=== PATIENT | male | born 1965 | race Caucasian/White ===

== ENCOUNTER 2019-06-15 12:58 | Emergency (ER) | payer OTHER ==
[2019-06-15] MEDS ORDERED: KETOROLAC 30 MG/ML INJ ONE (13:45)
[2019-06-15] MEDS ORDERED: dexAMETHasone 10 MG/ML VIAL ONE (13:45)
[2019-06-15] MEDS ORDERED: DIAZEPAM 10 MG/2 ML INJ SYRINGE ONE (13:45)
--- NOTE | 2019-06-15 14:00 | RAD REPORT ---
EXAM DESCRIPTION: CT - C Spine Wo Con - 06/15/2019 1:52 pm CLINICAL HISTORY: neck pain Neck pain, neck injury COMPARISON: Head C Spine Mpr Wo Con dated 06/09/2017; Head C Spine Mpr Wo Con dated 05/26/2017 FINDINGS: The cervical vertebral body heights are maintained. Mild lower cervical spondylosis with s mall endplate osteophytes. No evidence of acute cervical spine fracture or subluxation. Prevertebral soft tissues are normal in thickness. IMPRESSION: Negative for acute cervical spine abnormality. Mild lower cervical spondylosis. All CT scans are performed using dose optimization technique as appropriate and may include automated exposure control or mA/KV adjustment according to patient size.
[2019-06-15] MEDS ORDERED: ONDANSETRON 4 MG/2 ML VIAL ONE (14:47)
[2019-06-15] MEDS ORDERED: MORPHINE 4 MG/ML SYR ONE (14:47)
--- NOTE | 2019-06-15 15:33 | ER ---
Nurse's Notes [facility] Name: Jasmeet Mendoza Jr Age: 53 yrs Sex: Male : 1965 Arrival Date: 06/15/2019 Time: 13:01 Bed 18 Private MD: Diagnosis: Muscle spasm;Radiculopathy, cervical region Presentation: 06/15 13:19 Presenting complaint: Patient states: neck pain x 2 years. Patient reports he felt his ss neck crack today and has much more pain. Denies injury. Transition of care: patient was not received from another setting of care. Acute neurological deficit: none identified. Onset of symptoms was 2016. Risk Assessment: Do you want to hurt yourself or someone else? Patient reports no desire to harm self or others. Initial Sepsis Screen: Does the patient meet any 2 criteria? No. Patient's initial sepsis screen is negative. Does the patient have a suspected source of infection? No. Patient's initial sepsis screen is negative. Care prior to arrival: None. 13:19 Method Of Arrival: Ambulatory ss 13:19 Acuity: ALAN 4 ss Historical: - Allergies: 13:21 Codeine; ss 13:21 hydromorphone HCl; ss - Home Meds: 13:21 None [Active]; ss - PMHx: 13:21 chronic neck pain; ss 13:21 Myocardial infarction; ss - PSHx: 13:21 Appendectomy; ss - Immunization history:: Adult Immunizations unknown. - Social history:: Smoking status: Patient uses tobacco products, chewing tobacco. - Ebola Screening: : Patient denies exposure to infectious person Patient denies travel to an Ebola-affected area in the 21 days before illness onset. Screenin:20 Abuse screen: Denies threats or abuse. Denies injuries from another. Nutritional jl7 screening: No deficits noted. Tuberculosis screening: No symptoms or risk factors identified. Fall Risk IV access (20 points). Total James Fall Scale indicates No Risk (0-24 pts). Assessment: 13:30 General: Appears in no apparent distress. uncomfortable, Behavior is calm, cooperative, jl7 appropriate for age. Pain: Complains of pain in left posterior neck Pain radiates to right arm, left arm, right leg and left leg Pain currently is 10 out of 10 on a pain scale. Quality of pain is described as shooting, Pain began years ago. Is intermittent. Neuro: Level of Consciousness is awake, alert, obeys commands, Oriented to person, place, time, situation. Cardiovascular: Patient's skin is warm and dry. Respiratory: Airway is patent Respiratory effort is even, unlabored, Respiratory pattern is regular, symmetrical. Derm: Skin is pink, warm \T\ dry. Musculoskeletal: Range of motion: limited in neck. 14:45 Reassessment: Patient appears in no apparent distress at this time. Patient and/or jl7 family updated on plan of care and expected duration. Pain level reassessed. Patient is alert, oriented x 3, equal unlabored respirations, skin warm/dry/pink. Pain rated 7/10 at this time. Patient states feeling better. Patient states symptoms have improved. Vital Signs: 13:21 BP 124 / 80; Pulse 93; Resp 16; Temp 98.6(TE); Pulse Ox 99% on R/A; Weight 81.65 kg; ss Height 5 ft. 10 in. (177.80 cm); Pain 9/10; 14:20 BP 120 / 76; Pulse 72; Resp 16; Pulse Ox 100% ; Pain 10/10; jl7 14:45 BP 114 / 81; Pulse 64; Resp 16; Pulse Ox 100% ; Pain 7/10; jl7 13:21 Body Mass Index 25.83 (81.65 kg, 177.80 cm) ED Course: 13:01 Patient arrived in ED. rg4 13:19 Xander Paniagua PA is PHCP. jmm 13:19 Frantz Matthews MD is Attending Physician. [facility] 13:20 Triage completed. ss 13:21 Arm band placed on right wrist. ss 13:27 Erin Caldwell, BAEL is Primary Nurse. jl7 14:00 CT C Spine In Process Unspecified. EDMS 14:15 Inserted saline lock: 22 gauge in left forearm, using aseptic technique. jl7 14:20 Patient has correct armband on for positive identification. Placed in gown. Bed in low jl7 position. Call light in reach. Side rails up X 1. Pulse ox on. NIBP on. 15:31 Rg Gutierrez MD is Referral Physician. [facility] 15:47 No provider procedures requiring assistance completed. IV discontinued, intact, jl7 bleeding controlled, No redness/swelling at site. Pressure dressing applied. Administered Medications: 14:20 Drug: Decadron - Dexamethasone 10 mg Route: IVP; Site: left forearm; jl7 14:42 Follow up: Response: No adverse reaction; Pain is decreased jl7 14:25 Drug: Ketorolac 30 mg Route: IVP; Site: left forearm; jl7 14:43 Follow up: Response: No adverse reaction; Pain is decreased jl7 14:26 Drug: Valium 2 mg Route: IVP; Site: left forearm; jl7 14:43 Follow up: Response: No adverse reaction; Pain is decreased jl7 14:50 Drug: Zofran 4 mg Route: IVP; Site: left forearm; jl7 15:44 Follow up: Response: No adverse reaction jl7 14:52 Drug: morphine 4 mg Route: IVP; Site: left forearm; jl7 15:10 Follow up: Response: No adverse reaction; Pain is decreased jl7 Outcome: 15:32 Discharge ordered by . sherlyn 15:47 Discharged to home ambulatory, with family. jl7 15:47 Condition: stable 15:47 Discharge instructions given to patient, Instructed on discharge instructions, follow up and referral plans. medication usage, Demonstrated understanding of instructions, follow-up care, medications, Prescriptions given X 1. 15:49 Patient left the ED. jl7 Signatures: Dispatcher [employer] EDMS Xander Paniagua PA PA jmm Smirch, Shelby, RN RN Mesha Massey4 Erin Caldwell RN RN jl7 Corrections: (The following items were deleted from the chart) 15:23 13:30 Pain: Complains of pain in left posterior neck Pain radiates to right arm, left jl7 arm, right leg and left leg Pain currently is 8 out of 10 on a pain scale. Quality of pain is described as shooting, Pain began years ago. Is intermittent, jl7
--- NOTE | 2019-06-15 15:34 | EDPHYS ---
Physician Documentation [facility] Name: Jasmeet Mendoza Jr Age: 53 yrs Sex: Male : 1965 Arrival Date: 06/15/2019 Time: 13:01 Bed 18 Private MD: ED Physician Frantz Matthews HPI: 06/15 13:24 This 53 yrs old Male presents to ER via Ambulatory with complaints of Neck jmm Pain, >24Hrs Old. 13:24 The patient or guardian complains of pain. Onset: The symptoms/episode began/occurred jmm gradually, this morning. Associated signs and symptoms: Pertinent positives: headache, Paresthesias Pertinent negatives: headache. The pain radiates to the left arm. The patient has experienced similar episodes in the past. This is a 53 year old male with a history of chronic neck pain, ami that presents to the ED with complaints of left sided neck pain which radiates down his left arm. Patient has had similar episodes in the past but this episode is more intense. Patient denies chest pain or shortness of breath. . Historical: - Allergies: 13:21 Codeine; ss 13:21 hydromorphone HCl; ss - Home Meds: 13:21 None [Active]; ss - PMHx: 13:21 chronic neck pain; ss 13:21 Myocardial infarction; ss - PSHx: 13:21 Appendectomy; ss - Immunization history:: Adult Immunizations unknown. - Social history:: Smoking status: Patient uses tobacco products, chewing tobacco. - Ebola Screening: : Patient denies exposure to infectious person Patient denies travel to an Ebola-affected area in the 21 days before illness onset. ROS: 13:24 Constitutional: Negative for fever, chills, and weight loss, Eyes: Negative for injury, jmm pain, redness, and discharge, ENT: Negative for injury, pain, and discharge. 13:24 Cardiovascular: Negative for chest pain, palpitations, and edema, Respiratory: Negative for shortness of breath, cough, wheezing, and pleuritic chest pain. 13:24 Neck: Positive for pain with movement. 13:24 Back: Positive for pain with movement. 13:24 All other systems are negative. Exam: 13:24 Constitutional: This is a well developed, well nourished patient who is awake, alert, jmm and in no acute distress. Head/Face: atraumatic. Eyes: EOMI, no conjunctival erythema appreciated ENT: Moist Mucus Membranes 13:24 Chest/axilla: Normal chest wall appearance and motion. Cardiovascular: Regular rate and rhythm. No edema appreciated Respiratory: Normal respirations, no respiratory distress appreciated Abdomen/GI: Non distended, soft Back: Normal ROM 13:24 Neck: left sided neck pain on palpation, painful rotations noted. 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 13:24 Skin: Appearance: Color: normal in color. 13:24 Neuro: Orientation: is normal, Mentation: is normal, Memory: is normal. 13:24 Psych: Behavior/mood is pleasant, cooperative. Vital Signs: 13:21 BP 124 / 80; Pulse 93; Resp 16; Temp 98.6(TE); Pulse Ox 99% on R/A; Weight 81.65 kg; ss Height 5 ft. 10 in. (177.80 cm); Pain 9/10; 14:20 BP 120 / 76; Pulse 72; Resp 16; Pulse Ox 100% ; Pain 10/10; jl7 14:45 BP 114 / 81; Pulse 64; Resp 16; Pulse Ox 100% ; Pain 7/10; jl7 13:21 Body Mass Index 25.83 (81.65 kg, 177.80 cm) ss MDM: 13:24 Patient medically screened. [facility] 15:30 Data reviewed: vital signs, nurses notes. Counseling: I had a detailed discussion with sheryln the patient and/or guardian regarding: the historical points, exam findings, and any diagnostic results supporting the discharge/admit diagnosis, radiology results, the need for outpatient follow up, to return to the emergency department if symptoms worsen or persist or if there are any questions or concerns that arise at home. ED course: Pain decreased in the ED. Patient advised to follow up with spine surgery for reevaluation. patient otherwise given strict return precautions. patient understood and agrees with the plan of care. . 06/15 13:36 Order name: CT C Spine; Complete Time: 14:12 [facility] 06/15 13:36 Order name: Saline Lock; Complete Time: 14:20 [facility] Administered Medications: 14:20 Drug: Decadron - Dexamethasone 10 mg Route: IVP; Site: left forearm; jl7 14:42 Follow up: Response: No adverse reaction; Pain is decreased jl7 14:25 Drug: Ketorolac 30 mg Route: IVP; Site: left forearm; jl7 14:43 Follow up: Response: No adverse reaction; Pain is decreased jl7 14:26 Drug: Valium 2 mg Route: IVP; Site: left forearm; jl7 14:43 Follow up: Response: No adverse reaction; Pain is decreased jl7 14:50 Drug: Zofran 4 mg Route: IVP; Site: left forearm; jl7 15:44 Follow up: Response: No adverse reaction jl7 14:52 Drug: morphine 4 mg Route: IVP; Site: left forearm; jl7 15:10 Follow up: Response: No adverse reaction; Pain is decreased jl7 Disposition: 06/16 06:43 Co-signature as Attending Physician, Frantz Matthews MD I agree with the assessment and porter plan of care. Disposition: 06/15/19 15:32 Discharged to Home. Impression: Muscle spasm, Radiculopathy, cervical region. - Condition is Stable. - Discharge Instructions: Cervical Radiculopathy, Spasticity. - Prescriptions for Zanaflex 4 mg Oral Tablet - take 1 tablet by ORAL route every 8 hours As needed; 20 tablet. - Medication Reconciliation Form, Thank You Letter, Antibiotic Education, Prescription Opioid Use form. - Follow up: Rg Gutierrez MD; When: 2 - 3 days; Reason: Recheck today's complaints, Continuance of care, Re-evaluation by your physician. Signatures: Dispatcher [employer] Frantz Mercado MD MD cha Mickail, Joel, PA PA jmm Smirch, Shelby, RN RN ss Leal, Jahala, RN RN jl7 Corrections: (The following items were deleted from the chart) 06/15 15:49 15:32 06/15/2019 15:32 Discharged to Home. Impression: Muscle spasm; Radiculopathy, jl7 cervical region. Condition is Stable. Forms are Medication Reconciliation Form, Thank You Letter, Antibiotic Education, Prescription Opioid Use. Follow up: Rg Gutierrez; When: 2 - 3 days; Reason: Recheck today's complaints, Continuance of care, Re-evaluation by your physician. sherlyn
[2019-06-15 15:56] VITALS: TEMP 98.6
[2019-06-15 15:58] VITALS: O2SAT 100
[2019-06-15 15:59] VITALS: BP 114/81
== END 2019-06-15 15:49 | disposition home or self-care (01) ==
LOC: ER 12:58
DX: M54.12 Radiculopathy, cervical region (principal); M62.838 Other muscle spasm; F17.220 Nicotine dependence, chewing tobacco, uncomplicated; Z88.5 Allergy status to narcotic agent
CPT/HCPCS: 72125; 96375; 96374; 99284; J3360; J1100; J2405

== ENCOUNTER 2020-03-08 07:32 | Emergency (ER) | payer OTHER ==
--- OUTSIDE RECORDS SUMMARY | 2020-03-08 07:34 | XMS REPORT | Continuity of Care Document ---
:1965 Author Organization [facility] t Address [address] [place] [address] Care Team Providers Name Role Phone Garo ROMAN Attending Clinician Unavailable Kerry MERINO, S Attending Clinician Sam MERINO Attending Clinician Problems This patient has no known problems. Allergies, Adverse Reactions, Alerts This patient has no known allergies or adverse reactions. Medications This patient has no known medications. Procedures This patient has no known procedures. Encounters Start End Encounter Admission Attending Care Care Encounter Source Date/Time Date/Time Type Type Clinicians Facility Department ID 2020-02-23 2020-02-23 Transition Britany Wyman [id number] 00:00:00 00:00:00 of Care Shayla Iqbal [id number] [place] [id number] 2020-02-23 2020-02-23 Transition Britany Wyman [id number] 00:00:00 00:00:00 of Care Shayla Iqbal [id number] [place] [id number] 2020-02-22 2020-02-22 Emergency Snow Payne [facility] [id number] 06:08:10 10:35:00 Beck Vargas [id number] [place] [id number] [place] [id number] Results This patient has no known results.
--- OUTSIDE RECORDS SUMMARY | 2020-03-08 07:34 | XMS REPORT | Summary of Care ---
:1965 Author Organization [facility] Address [address] [place] [address] Care Team Providers Name Role Phone Pcp, Does Not Have A Primary Care Provider Reason for Referral (STAT) Status Reason Specialty Diagnoses / Referred By Referred To Procedures Contact Contact New Request IM-INTERNAL Diagnoses Headache disorder Hypertension, unspecified type Beck Fajardo, MEDICINE Procedures Discharge Follow-Up: Specialty Service IM-INTERNAL MEDICINE; 3-[address] [place] [address] MRI/CAT Scan (STAT) Status Reason Specialty Diagnoses / Referred By Referred To Procedures Contact Contact New Request Diagnostic Diagnoses Headache disorder Beck Fajardo, Radiology Procedures CT ANGIOGRAM NECK [address] [place] [address] MRI/CAT Scan (STAT) Status Reason Specialty Diagnoses / Referred By Referred To Procedures Contact Contact New Request Diagnostic Diagnoses Headache disorder Beck Fajardo, Radiology Procedures CT ANGIOGRAM HEAD [address] [place] [address] MRI/CAT Scan (STAT) Status Reason Specialty Diagnoses / Referred By Referred To Procedures Contact Contact New Request Diagnostic Diagnoses Headache disorder Snow Payne Radiology Procedures CT HEAD WO CONTRAST SMD [address] [place], [place] [id number] Reason for Visit Reason Comments Headache Auth/Cert Status Reason Specialty Diagnoses / Referred By Referred To Procedures Contact Contact Emergency Medicine Diagnoses SEVERE HEADACHE [facility] Emergency Dept [address] [place] [address] Fax: Encounter Details Date Type Department Care Team Description 02/22/2020 Emergency ADC-Emergency Snow Payne MD [address] [facility] [id number] [place], [place] [id number] Headache disorder (Primary Dx); Department Beck Fajardo MD [address] [facility] [address] [place], [place] [id number] Hypertension, unspecified type [address] [place], [place] [id number] Allergies Active Allergy Reactions Severity Noted Date Comments Codeine Hives 10/29/2015 documented as of this encounter (statuses as of 02/22/2020) Medications Medication Sig Dispensed Refills Start Date End Date Status diclofenac (VOLTAREN) 75 Take 1 tablet 60 tablet 1 01/30/2016 Active mg EC tablet by mouth 2 (two) times daily with meals. traMADOL (ULTRAM) 50 mg Take 1 tablet by mouth every 6 (six) hours as needed for Pain (scale 4-6). Rodolfo Cruz PA-C / Jeronimo Nichols MD 20 tablet 0 12/10/2016 Active tablet ENRIQUE# [id number] DPS# [id number] [place] Lic.# [id number] NPI# [id number] cyclobenzaprine 5 mg Take 1 tablet 30 tablet 0 12/10/2016 Active tablet by mouth 3 (three) times daily. Butalbital-Acetaminophen- Take 1 capsule 20 capsule 0 02/22/20 20 Active Caff (FIORICET) 50-300-40 by mouth every mg per 6 (six) hours capsuleIndications: as needed for Headache disorder, Pain (scale Hypertension, unspecified 4-6). type ondansetron 4 mg Take 1 tablet 20 tablet 0 02/22/2020 Active disintegrating by mouth every tabletIndications: 4 (four) hours Headache disorder, as needed for Hypertension, unspecified Nausea and type Vomiting (N/V). hydroCHLOROthiazide 25 mg Take 1 tablet 30 tablet 0 02/22/2020 Active tabletIndications: by mouth every Headache disorder, morning. Hypertension, unspecified type documented as of this encounter (statuses as of 02/22/2020) Active Problems Problem Noted Date Low back pain 01/30/2016 documented as of this encounter (statuses as of 02/22/2020) Immunizations Name Administration Dates Next Due Td 09/01/2015 documented as of this encounter Social History Tobacco Use Types Packs/Day Years Used Date Never Smoker Alcohol Use Drinks/Week oz/Week Comments No 0 Standard drinks or equivalent 0.0 Sex Assigned at Date Recorded Not on file Job Start Date Occupation Industry Not on file Not on file Not on file Travel History Travel Start Travel End No recent travel history available. COVID-19 Exposure Response Date Recorded In the last month, have you been in contact with No / Unsure 02/22/2020 6:30 AM CDT someone who was confirmed or suspected to have Coronavirus / COVID-19? documented as of this encounter Last Filed Vital Signs Vital Sign Reading Time Taken Comments Blood Pressure 125/91 02/22/2020 10:19 AM CDT Pulse 63 02/22/2020 10:19 AM CDT Temperature 36.9 C (98.4 F) 02/22/2020 6:10 AM CDT Respiratory Rate 12 02/22/2020 10:19 AM CDT Oxygen Saturation 100% 02/22/2020 10:19 AM CDT Inhaled Oxygen Concentration - - Weight 81.6 kg (180 lb) 02/22/2020 6:10 AM CDT Height 177.8 cm (5' 10") 02/22/2020 6:10 AM CDT Body Mass Index 25.83 02/22/2020 6:10 AM CDT documented in this encounter Discharge Instructions InstructionsBeck Fajardo MD - 02/22/2020 RETURN FOR ANY QUESTIONS OR CONCERNS Today you were seen by Beck Fajardo Jr., MD You were seen today for Chief Complaint Patient presents with Headache Your ER diagnosis was ICD-10-CM ICD-9-CM 1. Headache disorder R51 784.0 2. Hypertension, unspecified type I10 401.9 NO LIFE-THREATENING FINDINGS ON TODAY'S EXAM. YOUR PRESCRIPTIONS : Check out [employer] for medication discounts Medication List START taking these medications Hlnysmymhg-Xcimrfujdpdpi-Mwey 50-300-40 mg per capsule Commonly known as: FIORICET Take 1 capsule by mouth every 6 (six) hours as needed for Pain (scale 4-6). hydroCHLOROthiazide 25 mg tablet Commonly known as: ESIDRIX Take 1 tablet by mouth every morning. ondansetron 4 mg disintegrating tablet Commonly known as: ZOFRAN-ODT Take 1 tablet by mouth every 4 (four) hours as needed for Nausea and Vomiting (N/V). ASK your doctor about these medications cyclobenzaprine 5 mg tablet Commonly known as: FLEXERIL Take 1 tablet by mouth 3 (three) times daily. diclofenac 75 mg EC tablet Commonly known as: VOLTAREN Take 1 tablet by mouth 2 (two) times daily with meals. traMADol 50 mg tablet Commonly known as: ULTRAM Take 1 tablet by mouth every 6 (six) hours as needed for Pain (scale 4-6). Rodolfo Cruz PA-C / Jeronimo Nichols MD ENRIQUE# [id number] DPS# [id number] Ri Lic.# [id number] NPI# [id number] Where to Get Your Medications You can get these medications from any pharmacy Bring a paper prescription for each of these medications Jrgetosdde-Mfapxnghewwph-Qvhn 50-300-40 mg per capsule hydroCHLOROthiazide 25 mg tablet ondansetron 4 mg disintegrating tablet ER precautions and follow up : 1. Return to ER if your symptoms should worsen or fail to improve within 72 hours. 2. The care provided in the emergency room was for acute problems only. 3. You should follow up with your primary care provider within 72 hours. 4. Fill and take all your medications as prescribed. 5. Make sure you are staying adequately hydrated. Busque attencion immediatamente si usted tiene los sitomas sigue, vuelve peor o si hay sitomas nuevas o para cualquiera preoccupacion incluyendo dolor del pecho, falta aire, se siente debile, mas fievre, mas dolor, nausea, vomitando, sangrando que no es normal, confusion, baja or pierdas conciencia. MAY FOLLOW-UP WITH A PROVIDER OF YOUR CHOICE, SUCH : 1. A PHYSICIAN OF YOUR CHOICE 2. [facility], . LOCATIONS IN [facility] 3. [facility], [address], [place]; [phone] OR, IF YOU WISH TO FOLLOW-UP WITHIN THE [facility], MAY TRY THESE OPTIONS (CLINIC APPOINTMENTS AVAILABLE ON [id number] BASIS): 1. SCHEDULE AN APPOINTMENT ONLINE AT [facility] 2. OR CALL THE [facility] ACCESS CENTER AT OR 3. OR CALL YOUR [facility] PHYSICIAN'S OFFICE DIRECTLY IF YOU ARE ALREADY AN ESTABLISHED [facility] PATIENT. [facility] RETURN TO WORK / SCHOOL EXCUSE Jasmeet Mendoza WAS SEEN IN THE ER AND DISCHARGED 02/22/2020 TODAY, 10:23 AM & May return to Work / School / Incarceration on X with activity as tolerated indicated below. ___The following limitations apply until pt is seen by Physician and cleared to return to normal activity. _X_ Off for two days and return to activity as tolerated at work or school ___ No Sports ___ No work ___ Do not return until fever free for 24 hours. ___ No school BECK FAJARDO Jr., MD [facility] EMERGENCY DEPRTMENT [address] [place] [address] [place] [address] ### The patient may have been given Narcotic pain medications during their stay in the ED that may show up on a Drug Screen. The hospital discharge paper work will identify these medications. AttachmentsThe following attachments cannot be sent through Care Everywhere. Headache, Unspecified (Polish)Hypertension, New (Begin Treatment) (Polish) documented in this encounter Plan of Treatment Health Maintenance Due Date Last Done Comments HEPATITIS C (HCV) SCREEN 1965 DTaP,Tdap,and Td Vaccines (1 - 1974 09/01/2015 Tdap) Depression Screening 1975 COLONOSCOPY 2013 Zoster Recombinant Vaccine 2013 (SHINGRIX) (1 of 2) INFLUENZA VACCINE (Season Ended) 2020 PNEUMOCOCCAL 0-64 YEARS COMBINED Aged Out No longer eligible based on SERIES patient's age to complete this topic documented as of this encounter Procedures Procedure Name Priority Date/Time Associated Comments Diagnosis CT ANGIOGRAM NECK STAT 02/22/2020 9:47 Headache disorder R esults for this AM CDT procedure are i n the results section. CT ANGIOGRAM HEAD STAT 02/22/2020 9:47 Headache disorder R esults for this AM CDT procedure are i n the results section. CT HEAD WO CONTRAST STAT 02/22/2020 7:09 Headache disorder Results for this AM CDT procedure are i n the results section. CBC WITH DIFFERENTIAL STAT 02/22/2020 6:50 Headache disord er Results for this AM CDT procedure are i n the results section. CBC WITH DIFFERENTIAL STAT 02/22/2020 6:50 Headache disord er Results for this AM CDT procedure are i n the results section. BASIC METABOLIC PANEL STAT 02/22/2020 6:50 Headache disord er Results for this (NA, K, CL, CO2, AM CDT procedure a re in GLUCOSE, BUN, the results CREATININE, CA) section. PROTHROMBIN TIME / STAT 02/22/2020 6:31 Headache disorder Results for this INR AM CDT procedure are i n the results section. NOTICE OF PRIVACY Routine 02/22/2020 6:02 PRACTICES AM CDT documented in this encounter Results CT ANGIOGRAM NECK (02/22/2020 9:47 AM CDT) Specimen Impressions Performed At PACS/VR/DOSE No intracranial proximal large vessel occlusion. No ev idence of vertebral artery dissection. No significant extracranial stenosis. Narrative Performed At EXAMINATION: CT ANGIOGRAM NECK, CT ANG IOGRAM HEAD PACS/VR/DOSE HISTORY: Dissection of vertebral artery TECHNIQUE: CT angiography of the brain was performed and reviewed in multiple planes. Two dimensional multiplanar reformatted images were ge nerated and submitted to PACS. CT angiography of the neck was performed using 1 mm thick axial slices and reviewed in multiple planes. Two dimensional multiplanar reformatted images were generated and conner bmitted to PACS. A total of 100 mL Omnipaque was inject ed intravenously. COMPARISON: None. FINDINGS: CTA of the [place] reveals no intracranial pr oximal large vessel occlusion or significant stenosis. Mild right cavernous carotid atherosclerosis. Left vertebra artery functionally ter minates as PICA. No CT-identifiable aneurysm is present. C onventional angiography is more sensitive for the detection of small ane urysms. CTA of the neck demonstrates that the or igins of the great vessels are widely patent. Conventional arch anato my. There is no evidence of significant extracranial stenosis. 0% stenosis of th e cervical internal carotid arteries by NASCET criteria. No aneurysm is seen. Dominant right vertebral artery. Mild degenerative changes of the cervica l spine. Left nasal deformity. Procedure Note [facility], Radiant Results Inft User - 2019 10:10 AM CDT EXAMINATION: CT ANGIOGRAM NECK, CT ANGIOGRAM HEAD HISTORY: Dissection of vertebral artery TECHNIQUE: CT angiography of the brain was performe d and reviewed in multiple planes. Two dimensional multiplanar reformatted images were generated and submitted to PACS. CT angiography of the neck was performed using 1 mm thick axial slices and reviewed in multiple planes. Two dimensional multiplanar reformatted images were generated and conner bmitted to PACS. A total of 100 mL Omnipaque was injecte d intravenously. COMPARISON: None. FINDINGS: CTA of the [place] reveals no i ntracranial proximal large vessel occlusion or significant stenosis. Mild right cavernous carotid atherosclerosis. Left vertebra artery fu nctionally terminates as PICA. No CT-identifiable aneurysm is present. Co nventional angiography is more sensitive for the detection of small ane urysms. CTA of the neck demonstrates that the or igins of the great vessels are widely patent. Conventional arch anatom y. There is no evidence of significant extracranial stenosis. 0% s tenosis of the cervical internal carotid arteries by NASCET criteria. No aneurysm is seen. Dominant right vertebral artery. Mild degenerative changes of the cervica l spine. Left nasal deformity. IMPRESSION No intracranial proximal large vessel oc clusion. No evidence of vertebral artery dissection. No significant extracranial stenosis. Performing Organization Address City/State/Zipcode Phone Number PACS/VR/DOSE CT ANGIOGRAM HEAD (02/22/2020 9:47 AM CDT) Specimen Impressions Performed At PACS/VR/DOSE No intracranial proximal large vessel occlusion. No ev idence of vertebral artery dissection. No significant extracranial stenosis. Narrative Performed At EXAMINATION: CT ANGIOGRAM NECK, CT ANG IOGRAM HEAD PACS/VR/DOSE HISTORY: Dissection of vertebral artery TECHNIQUE: CT angiography of the brain was performed and reviewed in multiple planes. Two dimensional multiplanar reformatted images were ge nerated and submitted to PACS. CT angiography of the neck was performed using 1 mm thick axial slices and reviewed in multiple planes. Two dimensional multiplanar reformatted images were generated and conner bmitted to PACS. A total of 100 mL Omnipaque was inject ed intravenously. COMPARISON: None. FINDINGS: CTA of the [place] reveals no intracranial pr oximal large vessel occlusion or significant stenosis. Mild right cavernous carotid atherosclerosis. Left vertebra artery functionally ter minates as PICA. No CT-identifiable aneurysm is present. C onventional angiography is more sensitive for the detection of small ane urysms. CTA of the neck demonstrates that the or igins of the great vessels are widely patent. Conventional arch anato my. There is no evidence of significant extracranial stenosis. 0% stenosis of th e cervical internal carotid arteries by NASCET criteria. No aneurysm is seen. Dominant right vertebral artery. Mild degenerative changes of the cervica l spine. Left nasal deformity. Procedure Note [facility], Radiant Results Inft User - 2019 10:10 AM CDT EXAMINATION: CT ANGIOGRAM NECK, CT ANGIOGRAM HEAD HISTORY: Dissection of vertebral artery TECHNIQUE: CT angiography of the brain was performe d and reviewed in multiple planes. Two dimensional multiplanar reformatted images were generated and submitted to PACS. CT angiography of the neck was performed using 1 mm thick axial slices and reviewed in multiple planes. Two dimensional multiplanar reformatted images were generated and conner bmitted to PACS. A total of 100 mL Omnipaque was injecte d intravenously. COMPARISON: None. FINDINGS: CTA of the [place] reveals no i ntracranial proximal large vessel occlusion or significant stenosis. Mild right cavernous carotid atherosclerosis. Left vertebra artery fu nctionally terminates as PICA. No CT-identifiable aneurysm is present. Co nventional angiography is more sensitive for the detection of small ane urysms. CTA of the neck demonstrates that the or igins of the great vessels are widely patent. Conventional arch anatom y. There is no evidence of significant extracranial stenosis. 0% s tenosis of the cervical internal carotid arteries by NASCET criteria. No aneurysm is seen. Dominant right vertebral artery. Mild degenerative changes of the cervica l spine. Left nasal deformity. IMPRESSION No intracranial proximal large vessel oc clusion. No evidence of vertebral artery dissection. No significant extracranial stenosis. Performing Organization Address City/State/Zipcode Phone Number PACS/VR/DOSE CT HEAD WO CONTRAST (02/22/2020 7:09 AM CDT) Specimen Impressions Performed At PACS/VR/DOSE Unremarkable CT examination of the brain . Preliminary Report Dictated by Resident: Lashay Mcmanus MD., have reviewe d this study and agree with the above report. Narrative Performed At CT HEAD WO CONTRAST PACS/VR/DOSE HISTORY: Headache, acute, normal neuro e xam COMPARISON: None TECHNIQUE: Contiguous axial imaging to the base of sku ll was obtained with 2.5 mm slices without intravenous contra st. 5 mm axial, coronal, and sagittal reformats were obtained. FINDINGS: The ventricles and cerebral sulci are normal in calibe r and configuration. No hydrocephalus, midline shift or patho logical extra-axial fluid collection is present. The basal cistern s are unremarkable. There is no acute intracranial hemorrhag e or significant mass effect. No parenchymal attenuation abnormality. The sosa-white ma tter differentiation is preserved. The mastoid air cells and paranasal air sinuses are clear. The calvarium and central skull base are unremarkable. Procedure Note [facility], Radiant Results Inft User - 2019 8:[address] HEAD WO CONTRAST HISTORY: Headache, acute, normal neuro e xam COMPARISON: None TECHNIQUE: Contiguous axial imaging to t he base of skull was obtained with 2.5 mm slices without intravenous contra st. 5 mm axial, coronal, and sagittal reformats were obtained. FINDINGS: The ventricles and cerebral sulci are no rmal in caliber and configuration. No hydrocephalus, midline shift or patho logical extra-axial fluid collection is present. The basal cistern s are unremarkable. There is no acute intracranial hemorrhag e or significant mass effect. No parenchymal attenuation abnormality. The sosa-white matter differentiation is preserved. The mastoid air cells and paranasal air sinuses are clear. The calvarium and central skull base are unremarkable. IMPRESSION Unremarkable CT examination of the brain . Preliminary Report Dictated by Resident: Lashay Mcmanus MD., have reviewed this study and agree with the above report. Performing Organization Address City/State/Zipcode Phone Number PACS/VR/DOSE CBC WITH DIFFERENTIAL (02/22/2020 6:50 AM CDT) [facility] WBC 7.86 4.20 - 10.70 [facility] 10*3/L HOSP[facility] LAB[facility] RBC 4.89 4.26 - 5.52 [facility] 10*6/L H[facility]ITAL [facility] HGB 14.7 12.2 - 16.4 g/dL [facility] LABORATORY HCT 43.6 38.4 - 49.3 % [facility] MCV 89.2 81.7 - 95.6 fL [facility] MCH 30.1 26.1 - 32.7 pg [facility] MCHC 33.7 31.2 - 35.0 g/dL [facility] RDW-SD 40.1 38.5 - 51.6 fL [facility] RDW-CV 12.3 12.1 - 15.4 % [facility] PLT 279 150 - 328 [facility] 10*3/L [facility] MPV 8.7 (L) 9.8 - 13.0 fL [facility] NRBC/100 WBC 0.0 0.0 - 10.0 /100 [facility] WBCs [facility] NRBC x10^3 <0.01 10*3/L [facility] GRAN MAT (NEUT) % 56.2 % [facility] IMM GRAN % 0.40 % [facility] LYMPH % 32.8 % [facility] MONO % 7.3 % [facility] EOS % 2.7 % [facility] BASO % 0.6 % [facility] GRAN MAT x10^3(ANC) 4.42 1.99 - 6.95 [facility] 10*3/uL HOSPITAL LABORATORY IMM GRAN x10^3 0.03 0.00 - 0.06 [facility] 10*3/uL HOSPITAL LAB[facility]ORY LYMPH x10^3 2.58 1.09 - 3.23 [facility] 10*3/uL HOSPITAL LAB[facility] MONO x10^3 0.57 0.36 - 1.02 [facility] 10*3/uL HOS[facility]ITAL LAB[facility] EOS x10^3 0.21 0.06 - 0.53 [facility] 10*3/uL [facility]ITAL [facility] BASO x10^3 0.05 0.01 - 0.09 [facility] 10*3/uL HOSPITAL LAB[facility]ORY Specimen Blood - ARM, RIGHT Performing Organization Address City/State/Zipcode Phone Number [facility] CLIA: [id number], [address] [place], [place] [address] BASIC METABOLIC PANEL (NA, K, CL, CO2, GLUCOSE, BUN, CREATININE, CA) (02/22/2020 6:50 AM CDT) [facility] NA 137 135 - 145 mmol/L [facility] K 3.9 3.5 - 5.0 mmol/L [facility] CL 103 98 - 108 mmol/L [facility] CO2 TOTAL 27 23 - 31 mmol/L [facility] AGAP 7 2 - 16 [facility] BUN 12 7 - 23 mg/dL [facility] GLUCOSE 105 70 - 110 mg/dL [facility] CREATININE 1.08 0.60 - 1.25 [facility] mg/dL [facility] CALCIUM 9.7 8.6 - 10.6 mg/dL [facility] eGFR Calculation 70.7 mL/min/1.73m2 [facility] (Non-) [facility] LAB[facility] Y eGFR Calculation 85.7 mL/min/1.73m2 [facility] () [facility] Specimen Blood - ARM, RIGHT Narrative Performed At [facility] Glomerular Filtration Rate (GFR) [facility] and Staging of Kidney Disease* + + +- + | GFR (mL/min/1.73 m2) | With Kidney Damage | Without Kidney Damage + + +- + | >90 | Stage one | Normal + + +- + | 60-89 | Stage two | Decreased GFR + + +- + | 30-59 | Stage three | Stage three + + +- + | 15-29 | Stage four | Stage four + + +- + | <15 (or dialysis) | Stage five | Stage five + + +- + *Each stage assumes the associated GFR level has been in effect for at least three months. Stages 1 to 5, with or without kidney disease, indicate chronic kidney disease. Notes: Determination of stages one and two (with eGFR >59mL/min/1.73 m2) requires estimation of kidney damage for at least three months as defined by structural or functional abnormalities of the kidney, manifested by either: Pathological abnormalities or Markers of kidney damage (including abnormalities in the composition of the blood or urine or abnormalities in imaging tests). Performing Organization Address City/State/Zipcode Phone Number [facility] CLIA: [id number], [address] [place] [id number] [address] PROTHROMBIN TIME / INR (02/22/2020 6:31 AM CDT) PROTIME PATIENT 12.3 12.0 - 14.7 [facility] LABORATORY INR 1.0Comment: Normal [facility] INR <1.1; [facility] Therapeutic range LABORATORY 2.0 to 3.0 or 2.5 to 3.5, depending upon the indications. Specimen Blood - ARM, RIGHT Performing Organization Address City/State/Zipcode Phone Number [facility] CLIA: [id number], [address] [place], [place] [address] documented in this encounter Visit Diagnoses Diagnosis Headache disorder - Primary Headache Hypertension, unspecified type documented in this encounter Administered Medications Medication Order MAR Action Action Date Dose Rate Site acetaminophen (TYLENOL) tablet Given 02/22/2020 8:21 AM CDT 975 mg 975 mg 975 mg, Oral, ONCE, 1 dose, Noris 02/22/20 at 0845, PRITI cloNIDine (CATAPRES) tablet 0.2 mg Given 02/22/2020 8:22 AM CDT 0.1 mg 0.2 mg, Oral, ONCE, 1 dose, Noris 02/22/20 at 0845, STAT diphenhydrAMINE (BENADRYL) injection 25 mg Given 02/22/2020 6:49 AM CDT 25 mg 25 mg, Slow IV Push, ONCE, 1 dose, Noris 02/22/20 at 0745, STAT iohexol (OMNIPAQUE 350 BULK-100 mL) Given 02/22/2020 9:42 AM CD T 100 mL injection 100 mL 100 mL, Intravenous, ONCE, 1 dose, Noris 02/22/20 at 1000, Routine metoclopramide HCl (REGLAN) injection 10 mg Given 02/22/2020 6:50 AM CDT 10 mg 10 mg, Slow IV Push, ONCE, 1 dose, Noris 02/22/20 at 0745, PRITI documented in this encounter Additional Health Concerns Infection Onset Date Last Indicated Resolved Time 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
--- OUTSIDE RECORDS SUMMARY | 2020-03-08 07:34 | XMS REPORT | Summary of Care ---
:1965 Author Organization [facility] Address [address] [place] [id number] Care Team Providers Name Role Phone Pcp, Does Not Have A Primary Care Provider Reason for Visit Reason Comments ED F/U Encounter Details Date Type Department Care Team Description 02/23/2020 Transition of Care [facility] Shayla Wyman RN ED F/U [address] [address] Allergies Active Allergy Reactions Severity Noted Date Comments Codeine Hives 10/29/2015 documented as of this encounter (statuses as of 02/23/2020) Medications Medication Sig Dispensed Refills Start Date [...] 20 tablet 0 12/10/2016 Active tablet ENRIQUE# [id number] DPS# [id number] [place] Lic.# [id number] NPI# [id number] cyclobenzaprine 5 mg Take 1 tablet 30 [...] as of this encounter (statuses as of 02/23/2020) Active Problems Problem Noted Date Low back pain 01/30/2016 documented as of this encounter (statuses as of 02/23/2020) Immunizations Name Administration Dates Next Due Td [...] of this encounter Last Filed Vital Signs Not on filedocumented in this encounter Plan of Treatment Health [...] this topic documented as of this encounter Results Not on filedocumented in this encounter Additional Health Concerns Infection Onset Date Last Indicated Resolved Time Contact- MRSA 09/05/2015 09/05/2015 02/23/2020 7:17 AM CDT documented as of this encounter Insurance Payer Benefit Plan / Subscriber ID Effective Phone Address T ype Group Dates [employer] xxxxxxxxx 2020-Kylah P [place]in [place] [id number] [place] [address] documented as of this encounter
--- OUTSIDE RECORDS SUMMARY | 2020-03-08 07:35 | XMS REPORT | Summary of Care ---
:1965 Author Organization [facility] Address [address] [place] [address] Care Team Providers Name Role Phone Pcp, Does Not Have A Primary Care Provider Reason for Visit Reason Comments ED F/U Encounter Details Date Type Department Care Team Description 02/23/2020 Transition of Care [facility] Shayla Wyman RN ED F/U [address] [address] Allergies Active Allergy Reactions Severity Noted Date [...] 20 tablet 0 12/10/2016 Active tablet ENRIQUE# [id number] DPS# [id number] [place] Lic.# [id number] NPI# [id number] cyclobenzaprine 5 mg Take 1 tablet 30 [...] [employer] xxxxxxxxx 2020-Kylah P Ben[place] [id number] [place] [address] documented as of this encounter
[2020-03-08] MEDS ORDERED: METOPROLOL TAR 50 MG TAB ONE (08:25)
[2020-03-08 08:50] LABS: Absolute Lymphocytes (CBC) 2.4 K/uL (0.7-4.9); Basophils % 0.5 % (0-1.3); Hematocrit 42.4 % (39.6-49.0); Lymphocytes % 27.3 % (15.3-44.8); MPV 7.2 fL (7.6-11.3); RBC Red Blood Cell Count 4.76 M/uL (4.33-5.43)
--- NOTE | 2020-03-08 09:00 | RAD REPORT ---
EXAM DESCRIPTION: RAD - Chest Single View - 03/08/2020 8:33 am CLINICAL HISTORY: CHEST PAIN COMPARISON: Portable August 2015 TECHNIQUE: AP portable chest image was obtained 03/08/2020 8:33 am . FINDINGS: Lungs are clear. Heart and vasculature are normal. No measurable pleural effusion and no p neumothorax. No acute bony abnormality seen. No acute aortic findings suspected. IMPRESSION: No acute cardiopulmonary process. No significant change from the prior study.
[2020-03-08 09:11] LABS: ALT/SGPT 72 U/L (12-78); AST/SGOT 53 U/L (15-37); Albumin 3.6 g/dL (3.4-5.0); Alkaline Phosphatase 87 U/L (45-117); BUN Blood Urea Nitrogen 15 mg/dL (7-18); Bicarbonate 29 mmol/L (21-32); Bilirubin Direct 0.1 mg/dL (0-0.2); Bilirubin Total 0.6 mg/dL (0.2-1.0); Glucose Level 92 mg/dL (74-106); Lipase 132 U/L (73-393); Magnesium 2.5 mg/dL (1.8-2.4); NT PRO-BNP 19 pg/mL (<125); Potassium 3.4 mmol/L (3.5-5.1); Protein, Total 7.1 g/dL (6.4-8.2); Sodium Level 140 mmol/L (136-145); Troponin (Emerg Dept Use Only) < 0.02 ng/mL (0.0-0.045)
[2020-03-08] MEDS ORDERED: POTASSIUM 25 MEQ EFFERV TAB ONE (10:34)
--- NOTE | 2020-03-08 11:17 | ER ---
Nurse's Notes [facility] Name: Jsameet Mendoza Jr Age: 54 yrs Sex: Male : 1965 Arrival Date: 03/08/2020 Time: 07:36 Bed 8 Private MD: Diagnosis: Chest pain, unspecified;Essential (primary) hypertension Presentation: 03/08 07:37 Chief complaint: EMS states: Pt c/o L sided and midsternal chest pain, sharp and ph stabbing, hx of [place] and HTN, accompanied by [place] PD, VSS,. 12 lead showed a bundle branch block, pt denies SOB and nausea. Coronavirus screen: Patient denies a cough. Patient denies shortness of breath or difficulty breathing. Patient denies measured and/or subjective temperature greater than 100.4F prior to today's visit. Patient denies travel on a cruise ship or to a country the [facility] currently lists as an affected area. Patient denies contact with known and/or suspected case of COVID-19. Ebola Screen: No symptoms or risks identified at this time. Initial Sepsis Screen: Does the patient meet any 2 criteria? No. Patient's initial sepsis screen is negative. Does the patient have a suspected source of infection? No. Patient's initial sepsis screen is negative. Risk Assessment: Do you want to hurt yourself or someone else? Patient reports no desire to harm self or others. Onset of symptoms was March 08, 2020. 07:37 Method Of Arrival: EMS: [facility] ph 07:37 Acuity: ALAN 3 ph Historical: - Allergies: 07:39 Codeine; ph 07:39 hydromorphone HCl; ph - Home Meds: 07:39 unknown BP med [Active]; ph - PMHx: 07:39 chronic neck pain; Myocardial infarction; Hypertension; ph - PSHx: 07:39 Appendectomy; ph - Immunization history:: Adult Immunizations unknown. - Social history:: Patient uses alcohol, occasionally. Smoking status: . - Family history:: not pertinent. Screenin:41 Abuse screen: Denies threats or abuse. Denies injuries from another. Nutritional ph screening: No deficits noted. Tuberculosis screening: No symptoms or risk factors identified. Fall Risk None identified. Assessment: 07:41 General: Appears in no apparent distress. comfortable, Behavior is calm, cooperative, ph appropriate for age. Pain: Complains of pain in mid-sternal area and left breast Pain does not radiate. Quality of pain is described as sharp, Pain began 1 hour ago. Neuro: Level of Consciousness is awake, alert, obeys commands, Oriented to person, place, time, situation. Cardiovascular: Reports chest pain, Denies nausea, shortness of breath, vomiting, Capillary refill < 3 seconds in bilateral fingers Patient's skin is warm and dry. Rhythm is sinus rhythm Chest pain quality is sharp, stabbing, is located in left anterior chest wall substernal area. Respiratory: Airway is patent Respiratory effort is even, unlabored, Respiratory pattern is regular, symmetrical. GI: No signs and/or symptoms were reported involving the gastrointestinal system. Derm: Skin is intact, is healthy with good turgor, Skin is pink, warm \T\ dry. Musculoskeletal: Circulation, motion, and sensation intact. Range of motion: intact in all extremities. 08:38 Reassessment: Patient appears in no apparent distress at this time. Patient and/or ph family updated on plan of care and expected duration. Pain level reassessed. Patient is alert, oriented x 3, equal unlabored respirations, skin warm/dry/pink. Pt resting in bed, awaiting lab and radiology results, VSS, PD at bedside. 10:00 Reassessment: REPEAT TROP DUE AT 1030. ALL INITIAL RESULTS UNREMARKABLE. bp 10:48 Reassessment: Patient appears in no apparent distress at this time. Patient and/or ph family updated on plan of care and expected duration. Pain level reassessed. Patient is alert, oriented x 3, equal unlabored respirations, skin warm/dry/pink. Repeat cardiac enzymes sent, awaiting results, pt resting comfortably. Vital Signs: 07:37 BP 160 / 108; Pulse 78; Resp 18; Temp 97.9; Pulse Ox 100% on R/A; Weight 81.65 kg; ph Height 5 ft. 10 in. (177.80 cm); 08:37 BP 147 / 99; Pulse 73; Resp 18; Pulse Ox 100% on R/A; ph 10:00 BP 156 / 108; Pulse 56; Resp 14; Pulse Ox 100% ; bp 11:05 BP 162 / 101; Pulse 62; Resp 18; Pulse Ox 100% on R/A; ph 11:42 BP 164 / 96; Pulse 64; Resp 18; Temp 98.0; Pulse Ox 99% on R/A; ph 07:37 Body Mass Index 25.83 (81.65 kg, 177.80 cm) ph ED Course: 07:36 Patient arrived in ED. ph 07:37 Frantz Matthews MD is Attending Physician. porter 07:39 Triage completed. ph 07:40 Arm band placed on Patient placed in an exam room, on a stretcher, on cardiac cath lab technologist, ph on pulse oximetry. 07:40 EKG done, by ED staff, reviewed by Frantz Matthews MD. 3 07:41 Patient has correct armband on for positive identification. Bed in low position. Call ph light in reach. Side rails up X 1. wedding consultant on. Pulse ox on. NIBP on. Door closed. Noise minimized. 07:41 Maintain EMS IV. Dressing intact. Good blood return noted. Site clean \T\ dry. Gauge \T\ ph site: 20 RAC. Patient maintains SpO2 saturation greater than 95% on room air. 08:17 Carolann Reich, RN is Primary Nurse. ph 08:33 XRAY Chest (1 view) In Process Unspecified. EDMS 11:17 Kyle Ann MD is Referral Physician. porter 11:42 No provider procedures requiring assistance completed. IV discontinued, intact, ph bleeding controlled, No redness/swelling at site. Pressure dressing applied. Administered Medications: 08:35 Drug: Lopressor (metoprolol TARTRATE) 50 mg Route: PO; ph 10:12 Follow up: Response: No adverse reaction bp 10:48 Drug: Potassium Effervescent Tablet 25 mEq Route: PO; ph 12:00 Follow up: Response: No adverse reaction ph 11:42 Drug: Norvasc 10 mg Route: PO; ph 12:00 Follow up: Response: No adverse reaction ph Outcome: 11:17 Discharge ordered by . porter 11:43 Discharged to Law Enforcement ph 11:43 Condition: good 11:43 Discharge instructions given to patient, Instructed on discharge instructions, follow up and referral plans. medication usage, Demonstrated understanding of instructions, follow-up care, medications, Prescriptions given X 3. 11:43 Patient left the ED. ph Signatures: Dispatcher [employer] EDME Frantz Matthews MD MD cha Hall, Patricia, RN RN Deanne Fabian dh3 Orlando Marti, RN RN bp
--- NOTE | 2020-03-08 11:18 | EDPHYS ---
Physician Documentation [facility] Name: Jasmeet Mendoza Jr Age: 54 yrs Sex: Male : 1965 Arrival Date: 03/08/2020 Time: 07:36 Bed 8 Private MD: ED Physician Frantz Matthews HPI: 03/08 07:53 This 54 yrs old Male presents to ER via EMS with complaints of Chest Pain. [facility] 07:53 The patient or guardian reports chest pain that is located primarily in the substernal porter area. Onset: 1 hour(s) ago. The pain does not radiate. Associated signs and symptoms: The patient has no apparent associated signs or symptoms. The chest pain is described as sharp. Duration: The patient or guardian reports a single episode, that is still ongoing, but improving. Modifying factors: The symptoms are alleviated by remaining still, the symptoms are aggravated by breathing. Severity of pain: At its worst the pain was mild moderate in the emergency department the pain has improved mildly. The patient has not experienced similar symptoms in the past. Historical: - Allergies: 07:39 Codeine; ph 07:39 hydromorphone HCl; ph - Home Meds: 07:39 unknown BP med [Active]; ph - PMHx: 07:39 chronic neck pain; Myocardial infarction; Hypertension; ph - PSHx: 07:39 Appendectomy; ph - Immunization history:: Adult Immunizations unknown. - Social history:: Patient uses alcohol, occasionally. Smoking status: . - Family history:: not pertinent. ROS: 07:53 Constitutional: Negative for fever, chills, and weight loss, Eyes: Negative for injury, porter pain, redness, and discharge, ENT: Negative for injury, pain, and discharge, Neck: Negative for injury, pain, and swelling, Respiratory: Negative for shortness of breath, cough, wheezing, and pleuritic chest pain, Abdomen/GI: Negative for abdominal pain, nausea, vomiting, diarrhea, and constipation, Back: Negative for injury and pain, : Negative for injury, bleeding, discharge, and swelling, MS/Extremity: Negative for injury and deformity, Skin: Negative for injury, rash, and discoloration, Neuro: Negative for headache, weakness, numbness, tingling, and seizure, Psych: Negative for depression, anxiety, suicide ideation, homicidal ideation, and hallucinations, Allergy/Immunology: Negative for hives, rash, and allergies, Endocrine: Negative for neck swelling, polydipsia, polyuria, polyphagia, and marked weight changes, Hematologic/Lymphatic: Negative for swollen nodes, abnormal bleeding, and unusual bruising. 07:53 Neck: Positive for pain with movement, pain at rest. 07:53 MS/extremity: Negative for acute changes. Exam: 07:53 Constitutional: This is a well developed, well nourished patient who is awake, alert, porter and in no acute distress. Head/Face: Normocephalic, atraumatic. Eyes: Pupils equal round and reactive to light, extra-ocular motions intact. Lids and lashes normal. Conjunctiva and sclera are non-icteric and not injected. Cornea within normal limits. Periorbital areas with no swelling, redness, or edema. ENT: Nares patent. No nasal discharge, no septal abnormalities noted. Tympanic membranes are normal and external auditory canals are clear. Oropharynx with no redness, swelling, or masses, exudates, or evidence of obstruction, uvula midline. Mucous membranes moist. Neck: Trachea midline, no thyromegaly or masses palpated, and no cervical lymphadenopathy. Supple, full range of motion without nuchal rigidity, or vertebral point tenderness. No Meningismus. Cardiovascular: Regular rate and rhythm with a normal S1 and S2. No gallops, murmurs, or rubs. Normal PMI, no JVD. No pulse deficits. Respiratory: Lungs have equal breath sounds bilaterally, clear to auscultation and percussion. No rales, rhonchi or wheezes noted. No increased work of breathing, no retractions or nasal flaring. Abdomen/GI: Soft, non-tender, with normal bowel sounds. No distension or tympany. No guarding or rebound. No evidence of tenderness throughout. Back: No spinal tenderness. No costovertebral tenderness. Full range of motion. Male : Normal genitalia with no discharge or lesions. Skin: Warm, dry with normal turgor. Normal color with no rashes, no lesions, and no evidence of cellulitis. MS/ Extremity: Pulses equal, no cyanosis. Neurovascular intact. Full, normal range of motion. Neuro: Awake and alert, GCS 15, oriented to person, place, time, and situation. Cranial nerves II-XII grossly intact. Motor strength 5/5 in all extremities. Sensory grossly intact. Cerebellar exam normal. Normal gait. Psych: Awake, alert, with orientation to person, place and time. Behavior, mood, and affect are within normal limits. 07:53 Chest/axilla: Inspection: normal, Palpation: tenderness, that is mild, of the anterior aspect of right upper chest, anterior aspect of left upper chest, xyphoid area, mid-sternal area, right breast and left breast. 07:53 Cardiovascular: Rate: normal, Rhythm: regular, Pulses: no pulse deficits are appreciated, Heart sounds: normal, normal S1and S2, no S3 or S4, no murmur, no rub, no gallop, Edema: is not appreciated, JVD: is not appreciated. 08:17 ECG was reviewed by the Attending Physician. [facility] Vital Signs: 07:37 BP 160 / 108; Pulse 78; Resp 18; Temp 97.9; Pulse Ox 100% on R/A; Weight 81.65 kg; ph Height 5 ft. 10 in. (177.80 cm); 08:37 BP 147 / 99; Pulse 73; Resp 18; Pulse Ox 100% on R/A; ph 10:00 BP 156 / 108; Pulse 56; Resp 14; Pulse Ox 100% ; bp 11:05 BP 162 / 101; Pulse 62; Resp 18; Pulse Ox 100% on R/A; ph 11:42 BP 164 / 96; Pulse 64; Resp 18; Temp 98.0; Pulse Ox 99% on R/A; ph 07:37 Body Mass Index 25.83 (81.65 kg, 177.80 cm) ph MDM: 07:[address] [facility] 07:56 Data reviewed: vital signs, nurses notes, lab test result(s), EKG, radiologic studies, [facility] plain films. 09:30 Differential diagnosis: abnormal EKG, coronary artery disease chest wall pain, porter gastritis, pancreatitis, stable angina, unstable angina. HEART Score: History: Highly Suspicious (2), ECG: Normal (0), Age: > 45 and < 65 years (1), Risk Factors: 1 or 2 risk factors (1), [Hypertension] [+ Family HX] Troponin: < or = 1 x Normal Limit (0). The patient was not given aspirin in the Emergency Department. Patient reports taking aspirin within the past 24 hours. The patient's deep vein thrombosis risk score was calculated as follows: Total Score: 0. This patient was found to be at low risk for a deep vein thrombosis by using the Well's assessment criteria. The patient's pulmonary embolism risk score was calculated as follows: Total Score: 0-2 points. This patient was found to be at low risk for a pulmonary embolism by using the Well's assessment criteria. DONTAE Risk Score: TOTAL SCORE = 0. 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 Test interpretation: by ED physician or midlevel provider: ECG, plain radiologic studies. ED course: pt to take asa, toprol xl and nitro prn as needed and follow up dr ann. 11:17 ED course: cp resolved, second tropinin negative. [facility] 03/08 07:53 Order name: Basic Metabolic Panel 03/08 07:53 Order name: CBC with Diff 03/08 07:53 Order name: LFT's 03/08 07:53 Order name: Magnesium 03/08 07:53 Order name: NT PRO-BNP; Complete Time: 09:28 [facility] 03/08 07:53 Order name: Troponin (emerg Dept Use Only); Complete Time: 09:28 [facility] 03/08 07:53 Order name: Lipase; Complete Time: 09:28 [facility] 03/08 07:53 Order name: D-Dimer; Complete Time: 09:28 [facility] 03/08 07:54 Order name: Basic Metabolic Panel; Complete Time: 09:28 [facility] 03/08 07:54 Order name: CBC with Automated Diff; Complete Time: 09:28 [facility] 03/08 07:54 Order name: Liver (Hepatic) Function; Complete Time: 09:28 [facility] 03/08 07:54 Order name: Magnesium; Complete Time: 09:28 [facility] 03/08 07:53 Order name: XRAY Chest (1 view); Complete Time: 09:28 [facility] 03/08 07:53 Order name: EKG; Complete Time: 07:54 porter 03/08 07:53 Order name: Cardiac monitoring; Complete Time: 08:35 [facility] 03/08 07:53 Order name: EKG - Nurse/Tech; Complete Time: 08:35 03/08 07:53 Order name: IV Saline Lock; Complete Time: 08:35 [facility] 03/08 07:53 Order name: Labs collected and sent; Complete Time: 08:36 [facility] 03/08 07:53 Order name: O2 Per Protocol; Complete Time: 08:36 [facility] 03/08 07:53 Order name: O2 Sat Monitoring; Complete Time: 08:36 [facility] 03/08 10:45 Order name: Troponin (Emerg Dept Use Only); Complete Time: 11:16 [facility] EC: Rate is 78 beats/min. Rhythm is regular. QRS Hurt is Normal. VA interval is normal. QRS porter interval is normal. QT interval is normal. No Q waves. T waves are Normal. No ST changes noted. Clinical impression: Normal ECG and No evidence of ischemia. Interpreted by me. Reviewed by me. Administered Medications: 08:35 Drug: Lopressor (metoprolol TARTRATE) 50 mg Route: PO; ph 10:12 Follow up: Response: No adverse reaction bp 10:48 Drug: Potassium Effervescent Tablet 25 mEq Route: PO; ph 12:00 Follow up: Response: No adverse reaction ph 11:42 Drug: Norvasc 10 mg Route: PO; ph 12:00 Follow up: Response: No adverse reaction ph Disposition: 03/08/20 11:17 Discharged to Home. Impression: Chest pain, unspecified, Essential (primary) hypertension. - Condition is Stable. - Discharge Instructions: Nonspecific Chest Pain, Hypertension, Nonspecific Chest Pain, [id number], Hypertension, Kwzu-pw-[id number], Aspirin and Your Heart. - Prescriptions for Nitrostat 0.3 mg Sublingual Tablet, Sublingual - place 1 tablet by SUBLINGUAL route one time As needed - take one tablet 5-10 minutes prior to activities which might precipitate an attack; 25 tablet. Toprol XL 50 mg Oral Tablet - take 1 tablet by ORAL route once daily; 20 tablet. Norvasc 5 mg Oral Tablet - take 1 tablet by ORAL route once daily; 20 tablet. - Medication Reconciliation Form, Thank You Letter, Antibiotic Education, Prescription Opioid Use form. - Follow up: Private Physician; When: 2 - 3 days; Reason: Recheck today's complaints, Continuance of care, Re-evaluation by your physician. Follow up: Kyle Ann; When: 2 - 3 days; Reason: Recheck today's complaints, Re-evaluation by your physician. - Problem is new. - Symptoms have improved. Signatures: Dispatcher [employer] [facility] Frantz Matthews MD MD cha Hall, Patricia, RN RN ph Orlando Marti RN bp Corrections: (The following items were deleted from the chart) 10:44 08:13 TROPONIN (EMERG DEPT USE ONLY)+C.LAB.BRZ ordered. [facility] 10:44 09:28 TROPONIN (EMERG DEPT USE ONLY)+C.LAB.BRZ reviewed. [facility] 11:43 11:17 03/08/2020 11:17 Discharged to Home. Impression: Chest pain, unspecified; ph Essential (primary) hypertension. Condition is Stable. Discharge Instructions: Nonspecific Chest Pain, Hypertension, Nonspecific Chest Pain, Nqqf-zk-Hjwr, Hypertension, Mnua-hr-Jyfu, Aspirin and Your Heart. Prescriptions for Nitrostat 0.3 mg Sublingual Tablet, Sublingual - place 1 tablet by SUBLINGUAL route one time As needed - take one tablet 5-10 minutes prior to activities which might precipitate an attack; 25 tablet, Toprol XL 50 mg Oral Tablet - take 1 tablet by ORAL route once daily; 20 tablet, Norvasc 5 mg Oral Tablet - take 1 tablet by ORAL route once daily; 20 tablet. and Forms are Medication Reconciliation Form, Thank You Letter, Antibiotic Education, Prescription Opioid Use. Follow up: Private Physician; When: 2 - 3 days; Reason: Recheck today's complaints, Continuance of care, Re-evaluation by your physician. Follow up: Kyle Ann; When: 2 - 3 days; Reason: Recheck today's complaints, Re-evaluation by your physician. Problem is new. Symptoms have improved. [facility]
[2020-03-08] MEDS ORDERED: AMLODIPINE 5 MG TAB ONE (11:35)
[2020-03-08 12:27] VITALS: BP 164/96; TEMP 98; O2SAT 99
--- NOTE | 2020-03-08 18:14 | EKG ---
Test Date: 2020-03-08 Test Time: 07:38:35 Supervisor Locomotive: ROYAL MEASUREMENT RESULTS: Intervals: Rate: 72 NH: 146 QRSD: 122 QT: 406 QTc: 444 Kaplan: P: 60 NH: 146 QRS: -33 T: 64 INTERPRETIVE STATEMENTS: Normal sinus rhythm Left axis deviation Right bundle branch block Abnormal ECG Compared to ECG 08/25/2015 04:49:42 Left-axis deviation now present Right bundle-branch block now present Incomplete right bundle-branch block no longer present Electronically Signed On 03-08-20 18:12:39 CDT by Kyle Ann
== END 2020-03-08 11:43 | disposition home or self-care (01) ==
LOC: ER 07:32
DX: R07.9 Chest pain, unspecified (principal); I10 Essential (primary) hypertension; Z88.6 Allergy status to analgesic agent
CPT/HCPCS: 36415; 71045; 80048; 80076; 83690; 83735; 83880; 84484; 85025; 85379; 93005; 99285

== ENCOUNTER 2020-03-08 17:01 | Observation (INO) | payer OTHER ==
--- NOTE | 2020-03-08 18:02 | ER ---
Nurse's Notes [facility] Name: Jasmeet Mendoza Jr Age: 54 yrs Sex: Male : 1965 Arrival Date: 03/08/2020 Time: 17:17 Bed 5 Private MD: Diagnosis: Chest pain, unspecified;Essential (primary) hypertension Presentation: 03/08 17:22 Chief complaint: EMS states: Pt picked up at [facility], c/o chest pain, pt was evaluated ph for same complaint this morning in ED, pt states that the pain is the same, EMS administered nitro x 2, pain decreased from 6/10 to 4/10, initial BP 157/79, decreased to 120s systolic after nitro. Coronavirus screen: Patient denies a cough. Patient denies shortness of breath or difficulty breathing. Patient denies measured and/or subjective temperature greater than 100.4F prior to today's visit. Patient denies travel on a cruise ship or to a country the [facility] currently lists as an affected area. Patient denies contact with known and/or suspected case of COVID-19. Ebola Screen: No symptoms or risks identified at this time. Initial Sepsis Screen: Does the patient meet any 2 criteria? No. Patient's initial sepsis screen is negative. Does the patient have a suspected source of infection? No. Patient's initial sepsis screen is negative. Risk Assessment: Do you want to hurt yourself or someone else? Patient reports no desire to harm self or others. Onset of symptoms was March 08, 2020. 17:22 Method Of Arrival: EMS: [facility] ph 17:22 Acuity: ALAN 3 ph Historical: - Allergies: 17:27 Codeine; ph 17:27 hydromorphone HCl; ph - Home Meds: 17:27 unknown BP med [Active]; ph - PMHx: 17:27 chronic neck pain; Hypertension; Myocardial infarction; ph - PSHx: 17:27 Appendectomy; ph - Immunization history:: Adult Immunizations unknown. - Social history:: Smoking status: Patient reports the use of cigarette tobacco products, smokes one-half pack cigarettes per day. - Family history:: not pertinent. Screenin:27 Abuse screen: Denies threats or abuse. Denies injuries from another. Nutritional ph screening: No deficits noted. Tuberculosis screening: No symptoms or risk factors identified. Fall Risk None identified. Assessment: 17:29 General: Appears in no apparent distress. uncomfortable, Behavior is calm, cooperative, ph appropriate for age. Pain: Complains of pain in xyphoid area, left lateral anterior chest and left breast Pain radiates to back Pain currently is 4 out of 10 on a pain scale. Quality of pain is described as sharp. Neuro: Level of Consciousness is awake, alert, obeys commands, Oriented to person, place, time, situation. Cardiovascular: Reports chest pain, Capillary refill < 3 seconds in bilateral fingers Patient's skin is warm and dry. Rhythm is sinus rhythm. Respiratory: Airway is patent Respiratory effort is even, unlabored, Respiratory pattern is regular, symmetrical. Derm: Skin is intact, is healthy with good turgor, Skin is pink, warm \T\ dry. Musculoskeletal: Circulation, motion, and sensation intact. Range of motion: intact in all extremities. 19:20 General: Appears in no apparent distress. comfortable, Behavior is calm, patient rr5 updated for the plan of admission, he stated I don't want to stay. ED provider aware and spoke to the patient explained the admission but opted to go. AMA form signed.. Vital Signs: 17:22 BP 113 / 88; Pulse 63; Resp 18; Temp 97.8; Pulse Ox 100% on R/A; Weight 81.65 kg; Pain ph 4/10; 18:56 BP 128 / 84; Pulse 59; Resp 18; Pulse Ox 98% on R/A; ph 19:20 BP 121 / 75; Pulse 60; Resp 17; Pulse Ox 99% ; rr5 ED Course: 17:17 Patient arrived in ED. iw 17:20 Orlando Marti, RN is Primary Nurse. bp 17:27 Triage completed. ph 17:27 Arm band placed on Patient placed in an exam room, on a stretcher, on monitoring and evaluation advisor, ph on pulse oximetry. 17:28 Patient has correct armband on for positive identification. Bed in low position. Call ph light in reach. Side rails up X2. LJ officer at bedside. monitoring and evaluation advisor on. Pulse ox on. NIBP on. Door closed. Noise minimized. Warm blanket given. 17:28 Maintain EMS IV. Dressing intact. Good blood return noted. Site clean \T\ dry. Gauge \T\ ph site: 18 RAC. Patient maintains SpO2 saturation greater than 95% on room air. 17:30 Frantz Matthews MD is Attending Physician. [facility] 17:50 EKG done, by ED staff, reviewed by Frantz Matthews MD. [facility] 17:59 Prince Prieto MD is Hospitalizing Provider. [facility] 18:56 No provider procedures requiring assistance completed. Patient admitted, IV remains in ph place. 19:21 Kyle Ann MD is Referral Physician. [facility] Administered Medications: No medications were administered Outcome: 18:01 Decision to Hospitalize by Provider. [facility] 19:25 AMA AMA form signed rr5 19:25 Condition: stable 19:25 Instructed on the need for admit. 19:26 Patient left the ED. rr5 Signatures: Frantz Matthews MD MD cha Williams, Irene, RN ABEL Carolann Reich RN RN Deanne Fabian [facility] Orlando Marti, RN ABEL Magen Dao RN RN rr5
--- NOTE | 2020-03-08 18:02 | EDPHYS ---
Physician Documentation [facility] Name: Jasmeet Mendoza Jr Age: 54 yrs Sex: Male : 1965 Arrival Date: 03/08/2020 Time: 17:17 Bed 5 Private MD: ED Physician Frantz Matthews HPI: 03/08 17:56 This 54 yrs old Male presents to ER via EMS with complaints of Chest Pain. porter 17:56 The patient or guardian reports chest pain that is located primarily in the substernal porter area, anterior chest wall, left. Onset: today. The pain radiates to left back. Associated signs and symptoms: The patient has no apparent associated signs or symptoms. The chest pain is described as sharp. Modifying factors: The symptoms are alleviated by remaining still, the symptoms are aggravated by deep breath. Severity of pain: At its worst the pain was severe in the emergency department the pain has improved markedly. The patient has experienced a previous episode, approximately 7 years ago, but today's symptoms are not as bad as this previous episode. Historical: - Allergies: 17:27 Codeine; ph 17:27 hydromorphone HCl; ph - Home Meds: 17:27 unknown BP med [Active]; ph - PMHx: 17:27 chronic neck pain; Hypertension; Myocardial infarction; ph - PSHx: 17:27 Appendectomy; ph - Immunization history:: Adult Immunizations unknown. - Social history:: Smoking status: Patient reports the use of cigarette tobacco products, smokes one-half pack cigarettes per day. - Family history:: not pertinent. ROS: 17:57 Constitutional: Negative for fever, chills, and weight loss, Eyes: Negative for injury, porter pain, redness, and discharge, ENT: Negative for injury, pain, and discharge, Neck: Negative for injury, pain, and swelling, Respiratory: Negative for shortness of breath, cough, wheezing, and pleuritic chest pain, Abdomen/GI: Negative for abdominal pain, nausea, vomiting, diarrhea, and constipation, Back: Negative for injury and pain, : Negative for injury, bleeding, discharge, and swelling, MS/Extremity: Negative for injury and deformity, Skin: Negative for injury, rash, and discoloration, Neuro: Negative for headache, weakness, numbness, tingling, and seizure, Psych: Negative for depression, anxiety, suicide ideation, homicidal ideation, and hallucinations, Allergy/Immunology: Negative for hives, rash, and allergies, Endocrine: Negative for neck swelling, polydipsia, polyuria, polyphagia, and marked weight changes, Hematologic/Lymphatic: Negative for swollen nodes, abnormal bleeding, and unusual bruising. 17:57 Cardiovascular: Positive for chest pain, of the left clavicle, anterior aspect of left upper chest, left lateral posterior chest and left breast. 17:57 Respiratory: Positive for shortness of breath, at rest. Exam: 17:57 Constitutional: This is a well developed, well nourished patient who is awake, alert, porter and in no acute distress. Head/Face: Normocephalic, atraumatic. Eyes: Pupils equal round and reactive to light, extra-ocular motions intact. Lids and lashes normal. Conjunctiva and sclera are non-icteric and not injected. Cornea within normal limits. Periorbital areas with no swelling, redness, or edema. ENT: Nares patent. No nasal discharge, no septal abnormalities noted. Tympanic membranes are normal and external auditory canals are clear. Oropharynx with no redness, swelling, or masses, exudates, or evidence of obstruction, uvula midline. Mucous membranes moist. Neck: Trachea midline, no thyromegaly or masses palpated, and no cervical lymphadenopathy. Supple, full range of motion without nuchal rigidity, or vertebral point tenderness. No Meningismus. Chest/axilla: Normal chest wall appearance and motion. Nontender with no deformity. No lesions are appreciated. Cardiovascular: Regular rate and rhythm with a normal S1 and S2. No gallops, murmurs, or rubs. Normal PMI, no JVD. No pulse deficits. Respiratory: Lungs have equal breath sounds bilaterally, clear to auscultation and percussion. No rales, rhonchi or wheezes noted. No increased work of breathing, no retractions or nasal flaring. Abdomen/GI: Soft, non-tender, with normal bowel sounds. No distension or tympany. No guarding or rebound. No evidence of tenderness throughout. Back: No spinal tenderness. No costovertebral tenderness. Full range of motion. Male : Normal genitalia with no discharge or lesions. Skin: Warm, dry with normal turgor. Normal color with no rashes, no lesions, and no evidence of cellulitis. MS/ Extremity: Pulses equal, no cyanosis. Neurovascular intact. Full, normal range of motion. Neuro: Awake and alert, GCS 15, oriented to person, place, time, and situation. Cranial nerves II-XII grossly intact. Motor strength 5/5 in all extremities. Sensory grossly intact. Cerebellar exam normal. Normal gait. Psych: Awake, alert, with orientation to person, place and time. Behavior, mood, and affect are within normal limits. 17:57 Musculoskeletal/extremity: DVT Exam: No signs of deep vein thrombosis. no pain, no swelling, no tenderness, negative Homans' sign noted on exam, no appreciated bluish discoloration, no erythema, no increased warmth. 18:02 Skin: Appearance: Color: normal in color, Temperature: normal temperature, Moisture: porter normal moisture, petechiae, not noted, ecchymosis, not noted, diaphoresis is not appreciated, no rash present. 18:04 ECG was reviewed by the Attending Physician. [facility] Vital Signs: 17:22 BP 113 / 88; Pulse 63; Resp 18; Temp 97.8; Pulse Ox 100% on R/A; Weight 81.65 kg; Pain ph 4/10; 18:56 BP 128 / 84; Pulse 59; Resp 18; Pulse Ox 98% on R/A; ph 19:20 BP 121 / 75; Pulse 60; Resp 17; Pulse Ox 99% ; rr5 MDM: 17:33 Patient medically screened. [facility] 17:58 Data reviewed: vital signs, nurses notes, lab test result(s), EKG, radiologic studies, [facility] CT scan, plain films. 17:58 Differential diagnosis: abnormal EKG, acute myocardial infarction, gastritis, hiatal porter hernia, pancreatitis, stable angina, unstable angina. 03/08 17:34 Order name: Basic Metabolic Panel; Complete Time: 19:20 [facility] 03/08 17:34 Order name: CBC with Diff; Complete Time: 19:20 [facility] 03/08 17:34 Order name: Magnesium; Complete Time: 19:20 [facility] 03/08 17:34 Order name: Troponin (emerg Dept Use Only); Complete Time: 19:20 [facility] 03/08 17:51 Order name: CT Aorta for Dissection [facility] 03/08 17:55 Order name: Lipase; Complete Time: 19:20 [facility] 03/08 17:34 Order name: EKG; Complete Time: 17:35 [facility] 03/08 17:34 Order name: Cardiac monitoring; Complete Time: 17:53 [facility] 03/08 19:07 Order name: CT; Complete Time: 19:20 [facility] 03/08 17:34 Order name: EKG - Nurse/Tech; Complete Time: 17:53 [facility] 03/08 17:34 Order name: IV Saline Lock; Complete Time: 17:53 [facility] 03/08 17:34 Order name: Labs collected and sent; Complete Time: 17:55 [facility] 03/08 17:34 Order name: O2 Per Protocol; Complete Time: 17:53 [facility] 03/08 17:34 Order name: O2 Sat Monitoring; Complete Time: 17:54 [facility] EC:04 Rate is 64 beats/min. Rhythm is regular. QRS [place] is Normal. NV interval is normal. QRS porter interval is normal. QT interval is normal. No Q waves. T waves are Normal. No ST changes noted. Clinical impression: Normal ECG and No evidence of ischemia. Interpreted by me. Reviewed by me. Administered Medications: No medications were administered Disposition: 03/08/20 19:22 Patient has left against medical advice. Impression: Chest pain, unspecified, Essential (primary) hypertension. - Patients states they are going to Home. - Condition is Stable. - Discharge Instructions: Nonspecific Chest Pain, Hypertension, Nonspecific Chest Pain, Iwji-do-Qidw, Hypertension, [id number]-[id number], How to Take Your Blood Pressure, Cmgt-ah-Helv, Aspirin and Your Heart, Managing Your Hypertension. Follow up: Private Physician; When: 2 - 3 days; Reason: Recheck today's complaints, Continuance of care, Re-evaluation by your physician. Follow up: Kyle Ann MD; When: 2 - 3 days; Reason: Recheck today's complaints, Re-evaluation by your physician. - Problem is new. - Symptoms have improved. Signatures: Dispatcher [employer] Frantz Mercado MD MD cha Hall, Patricia, RN RN Magen Mendoza RN RN rr5 Corrections: (The following items were deleted from the chart) 19:21 18:01 Hospitalization Ordered by Prince Conner MERINO for Observation. Preliminary porter diagnosis is Chest pain, unspecified; Essential (primary) hypertension. Bed requested for Telemetry/MedSurg (observation). Status is Observation. Condition is Stable. Problem is new. Symptoms have improved. porter 19:26 19:22 03/08/2020 19:22 Patients has left against medical advice. Impression: Chest rr5 pain, unspecified; Essential (primary) hypertension. Patient states they are going to Home. Condition is Stable. Follow up: Private Physician; When: 2 - 3 days; Reason: Recheck today's complaints, Continuance of care, Re-evaluation by your physician. Follow up: Kyle Ann; When: 2 - 3 days; Reason: Recheck today's complaints, Re-evaluation by your physician. Problem is new. Symptoms have improved. porter
[2020-03-08 18:06] LABS: Absolute Lymphocytes (CBC) 2.8 K/uL (0.7-4.9); Basophils % 0.4 % (0-1.3); Hematocrit 44.5 % (39.6-49.0); Lymphocytes % 19.5 % (15.3-44.8); MPV 7.2 fL (7.6-11.3); RBC Red Blood Cell Count 5.04 M/uL (4.33-5.43)
[2020-03-08] MEDS ORDERED: FAMOTIDINE 20 MG/2 ML VIAL IV ONE (18:10)
[2020-03-08] MEDS ORDERED: FENTANYL CITR 100 MCG/2 ML ONE (18:10)
[2020-03-08] MEDS ORDERED: ONDANSETRON 4 MG/2 ML VIAL ONE (18:10)
[2020-03-08 18:26] LABS: BUN Blood Urea Nitrogen 19 mg/dL (7-18); Bicarbonate 26 mmol/L (21-32); Glucose Level 96 mg/dL (74-106); Magnesium 2.4 mg/dL (1.8-2.4); Potassium 3.5 mmol/L (3.5-5.1); Sodium Level 139 mmol/L (136-145); Troponin (Emerg Dept Use Only) < 0.02 ng/mL (0.0-0.045)
--- NOTE | 2020-03-08 19:03 | RAD REPORT ---
EXAM DESCRIPTION: CT - Angio Aorta For Dissection - 03/08/2020 6:31 pm CLINICAL HISTORY: . Chest pain COMPARISON: None TECHNIQUE: Computed tomography angiography of the chest, abdomen pelvis were obtained. 100 cc Isovue 370 was administered intravenously. Coronal and sagittal reconstruction were performed. MIP 3D reconstruction was performed All CT scans are performed using dose optimization technique as appropriate and may include automated exposure control or mA/KV adjustment according to patient size. FINDINGS: An aortic dissection is not seen. An aortic aneurysm is not displayed. The celiac, SMA and LAYTON are patent . A lung consolidation is not present. A pericardial effusion is not seen. A pleural effusion is not n oted. The liver,spleen, pancreas, left adrenal and kidneys demonstrate no significant abnormality. 9 millimeter right adrenal mass Diverticulosis. 3 centimeter area of narrowing involving proximal sigmoid colon Small left inguinal hernia Prostate gland is mildly enlarged IMPRESSION: Negative for an aortic dissection. 3 centimeter area of narrowing involving the proximal sigmoid colon could be secondary to incomplete distention or mass. Follow-up recommended 9 millimeter right adrenal mass has a nonspecific appearance. May represent an adenoma. As a metastas is has a similar appearance followup MRI in 3 months would be helpful
--- OUTSIDE RECORDS SUMMARY | 2020-03-08 19:34 | XMS REPORT | Continuity of Care Document ---
:1965 Author Organization [facility] t Address [address] [place] [address] Care Team Providers Name Role Phone Garo [...] 2020-02-23 2020-02-23 Transition Britany Wyman [id number] 00:00:00 00:00:00 of Care Shayla Iqbal [id number] [place] [id number] 2020-02-23 2020-02-23 Transition Britany Wyman [id number] 00:00:00 00:00:00 of Care Shayla Iqbal [id number] [place] [id number] 2020-02-22 2020-02-22 Emergency Snow Payne [facility] [id number] 06:08:10 10:35:00 Beck Vargas [id number] [place] [id number] [place] [id number] Results This patient has no known results.
[2020-03-08 19:58] VITALS: TEMP 97.8
[2020-03-08 19:59] VITALS: BP 128/84; O2SAT 98
--- NOTE | 2020-03-09 11:25 | EKG ---
Test Date: 2020-03-08 Test Time: 17:49:11 Metal Tank Erector: ROYAL MEASUREMENT RESULTS: Intervals: Rate: 64 FL: 144 QRSD: 118 QT: 424 QTc: 437 [place]: P: 74 FL: 144 QRS: 35 T: 84 INTERPRETIVE STATEMENTS: Normal sinus rhythm Right bundle branch block Abnormal ECG Compared to ECG 03/08/2020 07:38:35 Left-axis deviation no longer present Electronically Signed On 03-09-20 11:23:20 CDT by Kyle Ann
== END 2020-03-08 19:26 | disposition left against medical advice (07) ==
LOC: ER 17:01 → ERHOLD 18:08
PROVIDERS: ADMIT Internal Medicine; ATTEND Internal Medicine
DX: R07.89 Other chest pain (principal); I10 Essential (primary) hypertension; Z53.29 Procedure and treatment not carried out because of patient's decision for other reasons; I45.10 Unspecified right bundle-branch block; R94.31 Abnormal electrocardiogram [ECG] [EKG]; K63.89 Other specified diseases of intestine; E27.8 Other specified disorders of adrenal gland; I25.2 Old myocardial infarction; F17.210 Nicotine dependence, cigarettes, uncomplicated
CPT/HCPCS: 93005; 85025; 80048; 36415; 83735; 84484; 83690; 71275; 74175; 99284; Q9967; G0378; J2405; J3010

== ENCOUNTER 2021-04-04 18:40 | Emergency (ER) | payer OTHER ==
--- OUTSIDE RECORDS SUMMARY | 2021-04-04 19:01 | XMS REPORT | Continuity of Care Document ---
:1965 Author Organization [facility] t Address [address] [place] [address] Care Team Providers Name Role Phone Cookie ROMAN, L Attending Clinician Unavailable Kerry MERINO, S Attending Clinician Fausto MERINO Attending Clinician Problems This patient has no known problems. Allergies, Adverse Reactions, Alerts This patient has no known allergies or adverse reactions. Medications This patient has no known medications. Procedures This patient has no known procedures. Encounters Start End Encounter Admission Attending Care Care Encounter Source Date/Time Date/Time Type Type Clinicians Facility Department ID 2020-06-14 2020-06-14 Transition FannyVic padgettdesire [id number] 00:00:00 00:00:00 of Care Ilene Iqbal [id number] [place] [id number] 2020-06-12 2020-06-12 Emergency [facility] [id number] 00:22:00 02:30:00 Snow Jolley [id number] [place] [id number] [place] [id number] 2020-06-12 2020-06-12 Telephone [facility] [id number] 00:00:00 00:00:00 Seferino Jolley [id number] [place] [id number] [facility] [id number] [address] 2020-03-21 2020-03-21 Office Fausto [facility] [id number] 12:49:55 14:05:50 Visit Seferino Jolley [id number] [place] [id number] [place] [phone] [place] [address] Building Results This patient has no known results.
--- NOTE | 2021-04-04 21:02 | RAD REPORT ---
EXAM DESCRIPTION: RAD - Hip Left 2 View - 04/04/2021 7:32 pm CLINICAL HISTORY: PAIN COMPARISON: Hip Left 2 View dated 06/22/2016 FINDINGS: No left hip fracture or dislocation. Mild acetabular spurring. IMPRESSION: No acute osseous abnormality involving the left hip.
--- NOTE | 2021-04-04 21:03 | RAD REPORT ---
EXAM DESCRIPTION: RAD - Pelvis - 04/04/2021 7:32 pm CLINICAL HISTORY: PAIN COMPARISON: Pelvis dated 06/22/2016 FINDINGS: No pelvic fracture identified. The femoral heads are smooth in contour and overlie their r espective acetabula. The bowel gas pattern is nonobstructive. IMPRESSION: No pelvic fracture identified.
--- NOTE | 2021-04-04 21:35 | RAD REPORT ---
EXAM DESCRIPTION: CT - C Spine Wo Con - 04/04/2021 9:26 pm CLINICAL HISTORY: PAIN COMPARISON: C Spine Wo Con dated 06/15/2019; Head C Spine Mpr Wo Con dated 06/09/2017; Head C Spine Mp r Wo Con dated 05/26/[address] Scan was obtained of the cervical spine without contrast. Reformats were provided in th e sagittal and coronal plane. FINDINGS: No acute fracture of the cervical spine. No traumatic malalignment. No prevertebral edema. No suspicious thyroid nodules or lymphadenopathy. The lung apices are clear. Mild multilevel cervica l spondylosis with varying degrees of neural foraminal narrowing. IMPRESSION: No fracture or traumatic malalignment of the cervical spine.
--- NOTE | 2021-04-04 21:42 | RAD REPORT ---
EXAM DESCRIPTION: CT - Pelvis Wo Cont - 04/04/2021 9:28 pm CLINICAL HISTORY: TRAUMA COMPARISON: No comparisons FINDINGS: No pelvic fractures identified. Moderate rectal stool burden. Prostate within normal limit s. Tiny fat containing inguinal hernias. Mild circumferential bladder wall thickening which may be re lated to chronic bladder outlet obstruction. Cystic changes at the right femoral head neck junction n oted which is nonspecific peer IMPRESSION: No pelvic or hip fracture identified.
--- NOTE | 2021-04-04 22:04 | EDPHYS ---
Physician Documentation [facility] Name: Jasmeet Mendoza Jr Age: 55 yrs Sex: Male : 1965 Arrival Date: 04/04/2021 Time: 18:42 Bed 17 Private MD: ED Physician Nickolas Hutchinson HPI: 04/04 21:36 This 55 yrs old Male presents to ER via EMS with complaints of L Hip Pain. kb 21:35 The patient has not experienced similar symptoms in the past. The patient has not kb recently seen a physician. 21:36 Details of fall: The patient fell from a height, porch. Onset: The symptoms/episode kb began/occurred this morning. Associated injuries: The patient sustained neck injury, pain, left hip, painful injury. Severity of symptoms: At their worst the symptoms were moderate, in the emergency department the symptoms are unchanged. Patient states he fell off the porch this morning. Reports landing on left hip. Has been able to walk all day but pain persists to the left hip and now having neck pain as well. . Historical: - Allergies: 18:52 Codeine; zb 18:52 hydromorphone HCl; zb - PMHx: 18:52 chronic neck pain; Hypertension; Myocardial infarction; zb - PSHx: 18:52 Appendectomy; zb - Immunization history:: Adult Immunizations unknown, Client reports having NOT received the Covid vaccine. - Social history:: Smoking status: Patient/guardian denies using tobacco, but has a distant history of tobacco abuse. ROS: 21:33 Constitutional: Negative for fever, chills, and weight loss. kb 21:33 Neck: Positive for pain at rest. 21:33 MS/extremity: Positive for pain, of the left hip. 21:33 All other systems are negative. Exam: 21:33 Constitutional: This is a well developed, well nourished patient who is awake, alert, kb and in no acute distress. Head/Face: Normocephalic, atraumatic. ENT: Moist Mucous membranes Neck: Trachea midline, no thyromegaly or masses palpated, and no cervical lymphadenopathy. Supple, full range of motion without nuchal rigidity, or vertebral point tenderness. No Meningismus. Respiratory: Respirations even and unlabored. No increased work of breathing, no retractions or nasal flaring. Skin: Warm, dry with normal turgor. Normal color. Neuro: Awake and alert, GCS 15, oriented to person, place, time, and situation. Moves all extremities. Normal gait. Psych: Awake, alert, with orientation to person, place and time. Behavior, mood, and affect are within normal limits. 21:33 Musculoskeletal/extremity: Extremities: grossly normal except: noted in the left hip: pain, tenderness, ROM: intact in all extremities, Circulation is intact in all extremities. Sensation intact. Weight bearing: able to fully bear weight. Vital Signs: 18:45 BP 123 / 100; Pulse 71; Resp 18; Temp 97.9; Pulse Ox 100% ; Weight 81.65 kg; Height 5 zb ft. 10 in. (177.80 cm); Pain 3/10; 18:45 Body Mass Index 25.83 (81.65 kg, 177.80 cm) zb MDM: 18:53 Patient medically screened. kb 21:33 Data reviewed: vital signs, nurses notes. Data interpreted: Pulse oximetry: on room air kb is 100 %. Interpretation: normal. 22:02 Counseling: I had a detailed discussion with the patient and/or guardian regarding: the kb historical points, exam findings, and any diagnostic results supporting the discharge/admit diagnosis, radiology results, the need for outpatient follow up, a family practitioner, to return to the emergency department if symptoms worsen or persist or if there are any questions or concerns that arise at home. 04/04 18:53 Order name: Hip Left 2 View XRAY; Complete Time: 21:05 kb 04/04 18:53 Order name: Pelvis XRAY; Complete Time: 21:05 kb 04/04 21:06 Order name: CT Pelvis wo Cont; Complete Time: 22:01 kb 04/04 21:22 Order name: C Spine Wo Con; Complete Time: 21:36 EDMS Administered Medications: No medications were administered Disposition Summary: 04/04/21 22:04 Discharge Ordered Location: Home Condition: Stable kb Diagnosis - Pain in left hip kb Followup: kb - With: Emergency Department - When: As needed - Reason: Worsening of condition Followup: kb - With: Private Physician - When: 2 - 3 days - Reason: Recheck today's complaints, Continuance of care, Re-evaluation by your physician Discharge Instructions: - Discharge Summary Sheet kb - Musculoskeletal Pain kb - Hip Pain kb Forms: - Medication Reconciliation Form kb - Thank You Letter kb - Antibiotic Education kb - Prescription Opioid Use kb Prescriptions: - Cyclobenzaprine 10 mg Oral Tablet - take 1 tablet by ORAL route every 8 hours As needed; 21 tablet; Refills: 0, kb Product Selection Permitted - Diclofenac Sodium 75 mg Oral tablet,delayed release (DR/EC) - take 1 tablet by ORAL route 2 times per day As needed; 30 tablet; Refills: 0, kb Product Selection Permitted Addendum: 04/06/2021 17:11 Co-signature as Attending Physician, Nickolas priest a2 Signatures: Dispatcher [employer] EDHilaria Tapia, GEOLOGY TECHNICIAN-C GEOLOGY TECHNICIAN-Nickolas López MD MD ma2 Marianne Red RN RN zb
--- NOTE | 2021-04-04 22:04 | ER ---
Nurse's Notes [facility] Name: Jasmeet Mendoza Jr Age: 55 yrs Sex: Male : 1965 Arrival Date: 04/04/2021 Time: 18:42 Bed 17 Private MD: Diagnosis: Pain in left hip Presentation: 04/04 18:45 Chief complaint: EMS states: called ems for left hip pain. [place] a pop in left hip x7 zb days ago. called today because he stepped down a step a stair and felt a grinding and sharp pain which persisted. EMS placed 20 G IV Left arm and administer 50 mcg fentanyl IVP. pain reduced to 3/10. Coronavirus screen: At this time, the client does not indicate any symptoms associated with coronavirus-19. Ebola Screen: No symptoms or risks identified at this time. Initial Sepsis Screen: Does the patient meet any 2 criteria? No. Patient's initial sepsis screen is negative. Does the patient have a suspected source of infection? No. Patient's initial sepsis screen is negative. Risk Assessment: Do you want to hurt yourself or someone else? Patient reports no desire to harm self or others. Onset of symptoms was April 04, 2021. 18:45 Acuity: ALAN 3 zb 18:45 Method Of Arrival: EMS: [facility] zb Triage Assessment: 18:52 General: Appears uncomfortable, Behavior is calm, cooperative. Pain: Complains of pain zb in left femoral area and left hip Pain currently is 3 out of 10 on a pain scale. Quality of pain is described as aching, sharp, tender, throbbing. Neuro: Level of Consciousness is awake, alert, obeys commands, Oriented to person, place, time, situation, Speech is normal. Cardiovascular: Patient's skin is warm and dry. Respiratory: Airway is patent Respiratory effort is even, unlabored, Respiratory pattern is regular, symmetrical. Derm: Skin is intact, is healthy with good turgor, Skin temperature is warm. Musculoskeletal: Range of motion: limited in left hip. Historical: - Allergies: 18:52 Codeine; zb 18:52 hydromorphone HCl; zb - PMHx: 18:52 chronic neck pain; Hypertension; Myocardial infarction; zb - PSHx: 18:52 Appendectomy; zb - Immunization history:: Adult Immunizations unknown, Client reports having NOT received the Covid vaccine. - Social history:: Smoking status: Patient/guardian denies using tobacco, but has a distant history of tobacco abuse. Screenin:53 Abuse screen: Denies threats or abuse. Denies injuries from another. Nutritional zb screening: No deficits noted. Tuberculosis screening: No symptoms or risk factors identified. Fall Risk Fall in past 12 months (25 points). No secondary diagnosis (0 pts). No IV (0 pts). Ambulatory Aid- None/Bed Rest/Nurse Assist (0 pts). Gait- Normal/Bed Rest/Wheelchair (0 pts) Mental Status- Oriented to own ability (0 pts). Total James Fall Scale indicates Low Risk Score (25-44 pts). Fall prevention measures have been instituted. Side Rails Up X 2 Placed close to Nursing Station Frequent Obs/Assesments occuring Family Present and informed to notify staff if they need to leave bedside As available Patient and Family Educated on Fall Prevention Program and strategies. Vital Signs: 18:45 BP 123 / 100; Pulse 71; Resp 18; Temp 97.9; Pulse Ox 100% ; Weight 81.65 kg; Height 5 zb ft. 10 in. (177.80 cm); Pain 3/10; 18:45 Body Mass Index 25.83 (81.65 kg, 177.80 cm) zb ED Course: 18:42 Patient arrived in ED. ds1 18:45 Marianne Red, RN is Primary Nurse. zb 18:51 Triage completed. zb 18:53 [facility] Truong [facility]C [facility] kb 18:53 Nickolas Hutchinson MD is Attending Physician. kb 18:53 Patient has correct armband on for positive identification. Bed in low position. Call zb light in reach. Side rails up X 1. Pulse ox on. NIBP on. Door closed. Noise minimized. 18:54 Arm band placed on. zb 19:32 Hip Left 2 View XRAY In Process Unspecified. EDMS 19:32 Pelvis XRAY In Process Unspecified. EDMS 21:26 C Spine Wo Con In Process Unspecified. EDMS 21:28 CT Pelvis wo Cont In Process Unspecified. EDMS 22:27 No provider procedures requiring assistance completed. IV discontinued, intact, ea bleeding controlled, No redness/swelling at site. Pressure dressing applied. Administered Medications: No medications were administered Outcome: 22:04 Discharge ordered by . elizabeth 22:27 Discharged to home ambulatory. jimmy 22:27 Condition: stable 22:27 Discharge instructions given to patient, Instructed on discharge instructions, follow up and referral plans. medication usage, Demonstrated understanding of instructions, follow-up care, medications, Prescriptions given X 2. 22:27 Patient left the ED. ea Signatures: Dispatcher [employer] EDMO Hilaria Truong, LEONIDAS-C SELF PAY SPECIALIST-Mandi Noland ds1 Carol Smith RN RN Marianne Vences RN RN zdave Corrections: (The following items were deleted from the chart) 19:12 18:45 Chief complaint: EMS states: called ems for left hip pain. pain felt a pop in zb left hip x7 days ago. called today because he stepped down a step and felt a grinding and sharp pain. EMS placed 20 G IV Left arm and administer fentanyl pain reduced to 3/10. zb
[2021-04-04 22:34] VITALS: BP 123/100; TEMP 97.9; O2SAT 100
== END 2021-04-04 22:27 | disposition home or self-care (01) ==
LOC: ER 18:40
DX: M25.552 Pain in left hip (principal); M54.2 Cervicalgia; I10 Essential (primary) hypertension; Z88.5 Allergy status to narcotic agent
CPT/HCPCS: 72125; 72170; 72192; 99284